=== PATIENT | male | born 1995 | race Caucasian/White ===

== ENCOUNTER 2016-09-10 15:25 | Inpatient (IN) ==
[2016-09-10] MEDS ORDERED: Naloxone 0.4 MG/ML INJ IVP PRN (18:20)
[2016-09-10] MEDS ORDERED: Ondansetron 4 MG/2 ML VIAL IVP PRN (18:20)
[2016-09-10] MEDS ORDERED: *HR* Dextrose 50 % in Water (Syg) 50 ML SYRINGE IVP PRN ×2 (18:23→19:15)
[2016-09-10] MEDS ORDERED: Dextrose Gel 15 GM PO PRN ×4 (18:23→19:15)
[2016-09-10] MEDS ORDERED: D5% in Water 1,000 ML IV PRN ×2 (18:23→19:15)
--- NOTE | 2016-09-10 18:30 | Internal Med History&Physical ---
Date of Encounter: 09/10/16 Time of Encounter: 18:10 Assessment and Plan (1) DKA (diabetic ketoacidoses) Current visit: No Status: Acute -repeat BMP noted -DKA resolved -AG closed -metabolic acidosis resolved -patient reports of being hungry -Will start home dose of Levemir (48units) and start him on an ADA diet -d/c insulin drip two hours after Levemir administration -continue to monitor fingerstick and blood glucose -f/u HbA1C in am Qualifiers: Diabetes mellitus type: type 1 Diabetes mellitus complication detail: without coma Qualified Code(s): E10.10 - Type 1 diabetes mellitus with ketoacidosis without coma (2) Insulin dependent diabetes mellitus Current visit: Yes Status: Acute -f/u field training manager consult -patient extensively educated on the need for him to continue daily insulin use despite his Blood glucose levels -He demonstrates understanding but appears agitated and does not appear to want to comply -further follow up with his prior acute care physician after discharge (3) Cigarette smoker Current visit: Yes Status: Acute smoking cessation counseling provided patient not ready to quit at this time refused nicotine replacement therapy (4) DVT prophylaxis Current visit: Yes Status: Acute early ambulation Internal Medicine - H&P: HPI Chief complaint: transfer from [place] for DKA Admitted From: Hospital to Hospital Transfer Plans for Post Hospital Care: Home History of present illness: Mr. Fraga is a 21 year old male with IDDM who was transferred from [place] ER for persistent hyperglycemia and metabolic acidosis secondary to DKA. Patient is seen and examined with his parents present at bedside. As per parents , patient has history of multiple episodes of DKA in the past, all secondary to noncompliance. Patient states his blood sugars at home has been below 100 for the last few days due to which he did not take his insulin. Earlier today he woke up feeling severely nauseated with abdominal cramps and was found to have fingerstick glucose greater than 500 which prompted his visit to the ER. Due to persistent metabolic acidosis and no critical care services available at [place], patient was transferred to [facility]. At this time patient is resting comfortably in bed, reports of feeling significantly better. Denies any nausea, vomiting, fever, or chills at this time. Social hx: everyday smoker 1ppd Past Med Surg Social Fam HX - Past Medical History Medical history: diabetes, other Psychiatric history: no psych history - Past Surgical History Surgical History: pacemaker/AICD - Social History Smoking Status: Current every day smoker Packs per day: 1 Smokeless Tobacco Status: Yes Alcohol use: none Drug use: marijuana - Family History Mother Family Member Ethnicity: Non- Living Status: Still Living Hx Family Cardiac Disorders: Yes (grandparents) Hx Family Respiratory Disorders: Yes (grandparents) Hx Family Cancer: Yes (grandparents) Hx Family GI Disorders: No Hx Family Genitourinary Disorders: No Hx Family Endocrine Disorder: Yes (grandparents) Hx Family Musculoskeletal Disorders: No Hx Family Neuromuscular Disorders: No Hx Family Neurologic Disorders: No Hx Family HEENT Disorders: No Hx Family Autoimmune Disorders: No Hx Family Reproductive Disorders: No Hx Family Psychosocial Disorders: No Hx Family Medical Disorders: No Internal Medicine - H&P: Meds Insulin ASPART [NovoLOG] 0 unit SQ TIDWM 09/10/16 [History] Insulin Glargine [Lantus] 48 unit SQ HS 09/10/16 [History] Allergies No Known Allergies Allergy (Verified 09/10/16 09:35) All Systems PM: A 10-system review of systems was performed and is negative for pertinent findings except as documented above in the HPI. - Constitutional Constitutional: as per HPI, no anorexia, no chills, no excessive sweating, no fatigue, no fever(s), no falls, no lethargy, no malaise, no night sweats, no weakness, no weight gain, no weight loss - Constitutional Vitals: Pulse Resp BP Pulse Ox 76 18 122/67 98 09/10/16 17:49 09/10/16 17:49 09/10/16 17:49 09/10/16 17:49 General appearance: Present: A&O X 3, no acute distress, answers questions appropriately - Head Head exam: Present: atraumatic, normocephalic - Respiratory Respiratory exam: Present: CTAB. Absent: accessory muscle use, rales, rhonchi, wheezes - Cardiovascular Cardiovascular exam: Present: RRR, +S1, +S2. Absent: diastolic murmur, gallop, rubs, systolic murmur - GI/Abdominal GI/Abdominal exam: Present: normal bowel sounds, soft, no peritoneal signs. Absent: distended, tenderness - Extremities Exam Extremities exam: Present: warm, radial pulses palpable and symetrical. Absent : calf tenderness, cyanotic, pedal edema - Neurological Exam Neurological exam: Present: alert, oriented X3, no focal deficits - Psychiatric Psychiatric exam: Present: normal affect, normal mood Internal Med - H&P Results - Labs CBC & Chem 7: 09/10/16 18:28 09/10/16 18:28 - VTE Reasons for not Prescribing Prophylaxis: Treatment not Indicated - Low risk for VTE
[2016-09-10 18:39] LABS: Basophils # 0.1 K/mcL (0.0-0.2); Basophils % 0.3 %; Eosinophils % 0.2 %; Hematocrit 42.5 % (37.5-50.1); Hemoglobin 14.6 g/dL (12.9-16.9); Immature Platelets 6.2 % (1.1-6.1); Lymphocytes # 2.3 K/mcL (0.6-4.6); Lymphocytes % 11.5 %; Mean Corpuscular HGB Conc 34.4 g/dL (31.6-35.5); Mean Corpuscular Hemoglobin 29.8 pg (28.0-33.3); Mean Corpuscular Volume 86.7 fL (83.0-100.0); Mean Platelet Volume 10.7 fL (9.4-12.4); Monocytes # 1.2 K/mcL (0.0-1.3); Neutrophils # 16.2 K/mcL (1.6-8.9); Platelet Count 304 K/mcL (140-400); Red Cell Distribution Width 12.5 % (11.5-14.5)
[2016-09-10 18:52] LABS: Alanine Aminotransferase 19 Units/L (0-55); Albumin 3.9 g/dL (3.5-5.0); Albumin/Globulin Ratio 1.1 (1.1-2.2); Alkaline Phosphatase 118 Units/L (38-126); Aspartate Amino Transferase 16 Units/L (5-34); BUN/Creatinine Ratio 15 (6-26); Bilirubin,Total 0.5 mg/dL (0.2-1.2); Blood Urea Nitrogen 19 mg/dL (8-26); Calcium 9.2 mg/dL (8.6-10.8); Carbon Dioxide 19 mEq/L (19-29); Chloride 109 mEq/L (98-109); Globulin 3.4 g/dL (2.4-3.5); Glucose 144 mg/dL (70-99); Osmolality,Calculated 295 (280-300); Phosphorous 2.9 mg/dL (2.3-4.7); Potassium 4.2 mEq/L (3.5-4.5); Sodium 140 mEq/L (136-145); Total Protein 7.3 g/dL (6.0-8.3); eGFR For African Americans > 60 (> 60); eGFR For Non-African Americans > 60 (> 60)
[2016-09-10] MEDS ORDERED: Insulin DETEMIR 100 UNIT/ML X5UNITS SQ STA (19:10)
[2016-09-10] MEDS ORDERED: Insulin DETEMIR 100 UNIT/ML X5UNITS SQ ONE (20:03)
[2016-09-10] MEDS: 0.9 % Sodium Chloride 1,000 ML IVC SCH (20:09)
[2016-09-10] MEDS: Insulin LISPRO 300 UNITS/3 ML VIAL SQ SCH (20:16)
[2016-09-10] MEDS ORDERED: Insulin LISPRO 300 UNITS/3 ML VIAL SQ SCH (21:00)
[2016-09-11] MEDS ORDERED: Insulin LISPRO 300 UNITS/3 ML VIAL SQ SCH
[2016-09-11] MEDS: 0.9 % Sodium Chloride 1,000 ML IVC SCH ×2 (04:47→11:59)
[2016-09-11 04:48] LABS: Basophils % 0.2 %; Eosinophils # 0.2 K/mcL (0.0-0.6); Eosinophils % 1.2 %; Hematocrit 40.9 % (37.5-50.1); Hemoglobin 13.7 g/dL (12.9-16.9); Immature Granulocytes % 0.8 % (0-4); Lymphocytes # 3.2 K/mcL (0.6-4.6); Lymphocytes % 22.1 %; Mean Corpuscular HGB Conc 33.5 g/dL (31.6-35.5); Mean Corpuscular Hemoglobin 29.5 pg (28.0-33.3); Mean Corpuscular Volume 88.1 fL (83.0-100.0); Mean Platelet Volume 10.9 fL (9.4-12.4); Monocytes % 6.9 %; Platelet Count 251 K/mcL (140-400); Red Blood Count 4.64 M/mcL (4.19-5.50); Red Cell Distribution Width 12.7 % (11.5-14.5); Segmented Neutrophils % 68.8 %; VBG HCO3 21.9 mEq/L (21-27); VBG PH 7.2 pH Units (7.32-7.42)
[2016-09-11 05:00] LABS: BUN/Creatinine Ratio 15 (6-26); Blood Urea Nitrogen 17 mg/dL (8-26); Calcium 9.1 mg/dL (8.6-10.8); Carbon Dioxide 19 mEq/L (19-29); Chloride 109 mEq/L (98-109); Glucose 163 mg/dL (70-99); Magnesium 1.8 mg/dL (1.7-2.2); Osmolality,Calculated 297 (280-300); Phosphorous 3.1 mg/dL (2.3-4.7); Sodium 141 mEq/L (136-145); eGFR For African Americans > 60 (> 60); eGFR For Non-African Americans > 60 (> 60)
[2016-09-11 05:01] LABS: Hemoglobin A1C 10.3 %
[2016-09-11] MEDS: Insulin LISPRO 300 UNITS/3 ML VIAL SQ SCH ×2 (09:12→12:00)
[2016-09-11 14:58] VITALS: BP 128/57
--- NOTE | 2016-09-11 15:33 | Discharge Summary ---
Date of Encounter: 09/11/16 Time of Encounter: 15:31 - Discharge Diagnosis (1) DKA (diabetic ketoacidoses) Priority: Primary Status: Acute Qualifiers: Diabetes mellitus type: type 1 Diabetes mellitus complication detail: without coma Qualified Code(s): E10.10 - Type 1 diabetes mellitus with ketoacidosis without coma (2) Tobacco abuse Priority: Secondary Status: Acute (3) Insulin dependent diabetes mellitus Priority: Secondary Status: Acute - Discharge Medications Home Medications: Insulin ASPART [NovoLOG] 0 unit SQ TIDWM 09/10/16 [History] Insulin Glargine [Lantus] 48 unit SQ HS 09/10/16 [History] Allergies/Adverse Reactions: Allergies No Known Allergies Allergy (Verified 09/10/16 09:35) Date of admission: 09/10/16 18:20 Primary care physician: Elliott Francis MD Consults: 09/10/16 18:22 Consult to Cooperative Extension Agent [CONS] Stat Comment: noncompliance - Patient Status Disposition: Home, Self-Care Condition: Good Overall status at discharge: patient is back to baseline - Discharge Instructions Follow Up With: Elliott Francis MD [Primary Care Provider] - Additional Instructions: Follow with primary care physician within the next 7 days. Be compliant with doses of insulin. Quit smoking. - Diet and Activity Activity: increase activity as tolerated Diet: diabetic diet Hospital course: Mr. Fraga is a 21 year old male with tobacco, IDDM who was transferred from [place] ER for persistent hyperglycemia and metabolic acidosis secondary to DKA. Patient was and examined with his parents present at bedside. As per parents, patient has history of multiple episodes of DKA in the past, all secondary to noncompliance. Patient stated his blood sugars at home has been high for the last few days due to which he did not take his insulin. Earlier on the day of his admission he woke up feeling severely nauseated with abdominal cramps and was found to have fingerstick glucose greater than 500 which prompted his visit to the ER. Due to persistent metabolic acidosis and no critical care services available at [place], patient was transferred to [facility]. As the patient's anion gap was closed he was continued on his regular dose of insulin. He has remained stable and he is safe to be discharged at the moment. Smoking cessation counseling was offered and given. He was encouraged to be compliant with his insulin. Social hx: everyday smoker 1ppd Time spent discussing smoking cessation with patient: 3 to 10 minutes - Time Spent with Patient Total time spent providing and/or coordinating discharge services: Greater than 30 minutes - Constitutional Vitals: Temp Pulse Resp BP Pulse Ox 97.9 F 70 18 128/57 99 09/11/16 14:55 09/11/16 14:55 09/11/16 14:55 09/11/16 14:55 09/11/16 14:55 General appearance: Present: A&O X 3, no acute distress, answers questions appropriately - Head Head exam: Present: atraumatic, normocephalic - Eye Eye exam: Present: PERRL, conjuntiva pink, sclera anicteric Pupils: Present: PERRL - Neck Neck exam general surgery: Present: supple, trachea midline. Absent: lymphadenopathy - Respiratory Respiratory exam: Present: CTAB. Absent: accessory muscle use, rales, rhonchi, wheezes - Cardiovascular Cardiovascular exam: Present: RRR, +S1, +S2. Absent: diastolic murmur, gallop, rubs, systolic murmur - GI/Abdominal GI/Abdominal exam: Present: normal bowel sounds, soft, no peritoneal signs. Absent: distended, tenderness - Extremities Exam Extremities exam: Present: warm, radial pulses palpable and symetrical. Absent : calf tenderness, cyanotic, pedal edema - Neurological Exam Neurological exam: Present: CN II-XII intact, oriented X3, no focal deficits. Absent: pronater drift, facial droop, speech deficit - Skin Skin exam: Present: dry, intact - VTE Reasons for not Prescribing Prophylaxis: Treatment not Indicated - Low risk for VTE
[2016-09-11] MEDS ORDERED: FLU VACC QS2016-17 36MOS UP/PF 0.5 ML SYRINGE IM ONE (16:19)
[2016-09-11] MEDS ORDERED: Insulin DETEMIR 100 UNIT/ML X5UNITS SQ SCH (21:00)
== END 2016-09-11 16:47 | disposition home or self-care (01) | DRG 639 ==
LOC: 2NNU
PROVIDERS: ADMIT Internal Medicine; ATTEND Internal Medicine